=== PATIENT | female | born 1970 | race Caucasian/White ===

== ENCOUNTER → 2020-06-29 09:11 | Outpatient (CLI) | payer BC, SELFPAY ==
--- NOTE | ~2020-06-29 | MR_ITS ---
EXAMINATION: MR ankle LT wo con DATE: 06/29/2020 09:54 INDICATION: Peroneal tendinitis at the left ankle. Left ankle and lateral hindfoot pain. TECHNIQUE: Magnetic resonance imaging (MRI) of the affected ankle was performed without intravenous c ontrast. Sequences included sagittal, coronal, and axial proton-density weighted fast spin echo witho ut and with fat saturation. COMPARISON: None. FINDINGS: Medial ankle ligaments: Deep and superficial deltoid ligaments as well as the spring ligament are normal. Lateral ankle ligaments: The anterior and posterior inferior tibiofibular ligaments are normal. The calcaneofibular and poste rior talofibular ligaments are normal. There is attenuation and increased signal of the anterior talo fibular ligament without surrounding edema consistent with chronic partial tear. Tendons: Achilles tendon is normal. Small amount of fluid consistent with mild tenosynovitis along the peronea l tendon sheath and tibialis posterior tendon sheath. The peroneus longus tendon is normal. Mild phani neus brevis tendinopathy with longitudinal split tearing extending approximately 3 similar proximal a nd distal from the level of the tip of the lateral malleolus. The tibialis posterior, flexor digitoru m longus and flexor hallucis longus tendons are normal. The tibialis anterior and extensor hallucis l ongus and extensor digitorum longus tendons are normal. Plantar fascia: Plantar aponeurosis is normal. Bones/other: Bone alignment is normal. Mild osteoarthritis at the calcaneocuboid articulation with subarticular cy stic change along the medial side of the cuboid. Additional mild osteoarthritis without degenerative subarticular changes at the ankle and the second and third tarsal metatarsal joints. Marrow signal is otherwise normal throughout with no fracture or pathologic marrow replacing process. Small focus of susceptibility artifact centered along the skin surface plantar to the first tarsal metatarsal joint. Fluid: Physiologic amount fluid in the joint spaces. 11 x 3 x 3 mm multilobulated ganglion cyst along the do rsal margin of the talonavicular joint. No other abnormal fluid collections. IMPRESSION: 1. Mild peroneal tenosynovitis with mild tendinopathy and longitudinal split tearing of the peroneus brevis tendon. 2. Mild tenosynovitis along the tibialis posterior tendon. 3. 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 Reviewed, dictated and finalized at location B. IMPRESSION: 1. Mild peroneal tenosynovitis with mild tendinopathy and longitudinal split te aring of the peroneus brevis tendon. 2. Mild tenosynovitis along the tibialis posterior tendon. 3. Mild polyarticular osteoarthritis at the ankle, mid and hindfoot with mild r eticular cystic change at the calcaneal side of the calcaneocuboid articulation .
== END ==
PROVIDERS: Visit Provider Podiatrist Foot & Ankle Surgery
DX: M76.72 Peroneal tendinitis, left leg (principal); S96.812A Strain of other specified muscles and tendons at ankle and foot level, left foot, initial encounter; M65.872 Other synovitis and tenosynovitis, left ankle and foot; M19.072 Primary osteoarthritis, left ankle and foot
CPT/HCPCS: 73721

== ENCOUNTER 2020-08-11 00:10 | Outpatient (CLI) | payer BC, SELFPAY ==
[2020-08-11 18:38] LABS: SARS-CoV-2 RNA PCR Negative
== END 2020-08-11 00:11 | disposition home or self-care (01) ==
LOC: ANHCOVIDDT 00:11
PROVIDERS: PCP Family Medicine; Visit Provider Podiatrist Foot & Ankle Surgery
DX: Z01.812 Encounter for preprocedural laboratory examination (principal); Z20.828 Contact with and (suspected) exposure to other viral communicable diseases
CPT/HCPCS: 87635; C9803; U0003

== ENCOUNTER 2020-08-13 01:30 | Day surgery (SDC) | payer BC, SELFPAY ==
[2020-08-03 13:33] VITALS: BMI 38.7
[2020-08-13] VITALS (7 sets, daily range): BP systolic 120–142; BP diastolic 69–85; PULSE 65–92; RESP 14–18; TEMP 36.5; O2SAT 97–100
[2020-08-13] MEDS: LACTATED RINGERS 1,000 ML 30 ML IV CONT ×2 (06:45→09:21)
--- NOTE | 2020-08-13 07:02 | WPDHPUPDATE1 ---
History and Physical Update Update Date/Time: 08/13/20 07:02 History and Physical has been reviewed, including an updated exam of the patient. There are NO changes in the patient's condition. Risks, benefits, and alternatives have been discussed and questions answered. Patient agrees to proceed with procedure.
--- NOTE | 2020-08-13 07:08 | WPDANESEPPF ---
Anes - Initial Pre Proc Eval Procedure: Operation Date: 08/13/20 07:30 Proposed Procedures p Primary Repair Of Peroneal Tendons Left Ankle - Prince Ndiaye JR, MD Date/Time: 08/13/20 07:08 Surgeon: Prince Ndiaye JR, MD Pre Op Diagnosis: Peroneal Tendinopathy Left Ankle Patient Data Age: 49 Gender: F Height: 5 ft 6 in Weight: 108.5 kg Allergies Allergy/AdvReac Type Severity Reaction Status Date / Time clindamycin Allergy Intermediate hives Verified 08/13/20 06:59 hyaluronate sodium, Allergy Rash Verified 08/13/20 06:59 stabilized [From Monovisc] Home Medications Medication Instructions Recorded Confirmed Type acetaminophen [Tylenol] 325 mg PO DIRECTED PRN 08/03/20 08/03/20 History cholecalciferol (vitamin D3) 125 mcg PO DAILY 08/03/20 08/13/20 History [Vitamin D3] cyanocobalamin (vitamin B-12) 5,000 mcg SUBLINGUAL DAILY 08/03/20 08/13/20 History [Vitamin B-12] ibuprofen 400 mg PO Q6H PRN 08/03/20 08/13/20 History Patient hx anesthesia problems: none Family hx anesthesia problems: none PMFSH Past Medical History Medical History (Updated 08/13/20 @ 07:08 by Bart Lentz MD) Anxiety GERD (gastroesophageal reflux disease) Obesity BRIANDA on CPAP Surgical History Surgical History (Updated 08/13/20 @ 07:09 by Bart Lentz MD) H/O arthroscopic knee surgery Social History Social History Smoking status: Never smoker Spiritual care concerns: No Anes - Eval Final PreProcedure Day of Procedure 08/13/20 07:08 Patient weight: obese Heart: regular rate and rhythm Lungs: clear to auscultation Airway: Mallampati scale class II Neurological: alert and oriented Last oral intake: >/= 8 hours ASA classification: III Emergent: no Anesthetic plan: proceed Anesthesia type and monitoring: general LMA and standard monitoring Informed Consent: The patient's anesthetic plan and its attendant risks and benefits were discussed with the patient/family/POA. Questions were solicited and answers provided to the satisfaction of the patient/family/POA.
[2020-08-13] MEDS: ceFAZolin 2 GM/D5W 50 ML 2 GM/50 ML BAG IVPB (07:23)
--- NOTE | 2020-08-13 09:30 | PM.OP ---
Procedure Note - Brief Procedure Note - Brief Date of procedure: 08/13/20 Pre-op diagnosis: Peroneal Tendinopathy Left Ankle Post-op diagnosis: same Procedure performed: 1. Primary repair of peroneal tendons left foot and ankle 2. Peroneal tenosynovectomy left foot and ankle Anesthesia: GLMA Surgeon: Prince Ndiaye JR, DPM Estimated blood loss (mL): 10 Complications: No immediate complications Condition: stable Disposition: same day
[2020-08-13] MEDS: fentaNYL CITRATE INJ (*CRX) 100 MCG/2 ML VIAL 25 MCG IV PUSH ×8 (09:46→11:02)
[2020-08-13] MEDS: oxyCODONE HCL (*CRX) 5 MG TAB IR PO (10:42)
--- NOTE | 2020-08-13 11:33 | SUR.PHASEII ---
LEFT LEG ELEVATED WITH ICE BEHIND THE KNEE DURING STAY IN OP.
--- NOTE | 2020-08-13 17:26 | OP_ITS ---
DATE OF PROCEDURE: 08/13/2020 PREOPERATIVE DIAGNOSIS: Peroneal tendinopathy, left foot. POSTOPERATIVE DIAGNOSES: 1. Peroneal tendinopathy, left foot and ankle with longitudinal split tearing of the peroneus brevis and peroneus longus tendons. 2. Peroneal tenosynovitis, left foot and ankle. PROCEDURE: 1. Peroneal tenosynovectomy, left foot and ankle. 2. Primary repair of the peroneal tendons, left foot and ankle. PATHOLOGY: Tenosynovitis, sent for gross and histopathology. ANESTHESIA: General with local. HEMOSTASIS: Pneumatic thigh tourniquet at 300 mmHg. ESTIMATED BLOOD LOSS: Minimal. MATERIALS USED: 5-0 Prolene, 3-0 Vicryl, 4-0 Vicryl, and 4-0 Monocryl. INJECTABLES: 20 mL of Exparel injected preoperatively. COMPLICATIONS: None. PROCEDURE IN DETAIL: Under mild sedation, the patient was brought in the operating room, placed on the operating table in the lateral decubitus position. A pneumatic thigh tourniquet was placed about the patient's left thigh. Following general anesthesia, local anesthesia obtained about the left lower extremity just posterior and inferior to the neck of the fibula depositing 20 mL of Exparel. The foot was then scrubbed, prepped, and draped in the usual aseptic manner. An Esmarch bandage was then used to exsanguinate the patient's left foot and ankle and the pneumatic thigh tourniquet was then inflated. Surgery began in the following manner: Attention was directed to the lateral aspect of the left ankle where an incision was made just posterior to the lateral malleolus and extending 5 cm superiorly. The incision then was directed toward the base of the 5th metatarsal in a curvilinear fashion. The dissection was continued deep down through the subcutaneous tissues using sharp and blunt dissection. All bleeders were ligated and cauterized as necessary. At this point, blunt dissection was continued deep down to the level of the peroneal tendon sheath which was incised. The peroneus brevis tendon was visualized. There was a 2 cm longitudinal split tear along the proximal aspect of the peroneus brevis tendon. This was resected along with the bulbous thickening that was present just inferior to the longitudinal split tear. Next 5-0 Prolene was used to re-tubularize the peroneus brevis tendon. At this point, the dissection was continued deeper down to the level of the peroneus longus tendon. The peroneus longus tendon sheath was then incised and there was significant fraying of the entire peroneus longus tendon. There was approximately 6-7 cm of longitudinal split tearing. The amorphous longitudinal split tearing to the peroneus longus tendon was then debrided with a sharp 15 blade. Next 5-0 Prolene was used to re-tubularize the healthy portion of the peroneus longus tendon in simple interrupted suture technique. Once the peroneus longus and the peroneus brevis tendons were re-tubularized, there were still adequate healthy peroneal tendon tissues still remaining, so the decision was made to continue without a primary tenodesis. The peroneus longus and the peroneus brevis tendons were then appropriately positioned within the retromalleolar groove of the fibula. Next, there was significant tenosynovial tissue present, especially along the proximal aspect of the peroneal tendons. This was debrided and sent for gross and histopathology. All remaining deep bleeders were ligated and cauterized as necessary. The wound site was then flushed with copious amounts of sterile saline. Next, the periosteal and retinacular tissues were reapproximated and coapted with 3-0 PDS in simple interrupted suture technique. Next, the subcutaneous structures were reapproximated with 4-0 Vicryl in simple interrupted suture technique. Next, the skin was reapproximated and
== END 2020-08-13 11:34 | disposition home or self-care (01) ==
PROVIDERS: PCP Family Medicine; Visit Provider Podiatrist Foot & Ankle Surgery
PROC: (CPT 27650; principal; 2020-08-13 07:30)
DX: M76.72 Peroneal tendinitis, left leg (principal); M65.872 Other synovitis and tenosynovitis, left ankle and foot; L21.9 Seborrheic dermatitis, unspecified; G47.33 Obstructive sleep apnea (adult) (pediatric); F41.9 Anxiety disorder, unspecified; E66.9 Obesity, unspecified; Z68.38 Body mass index [BMI] 38.0-38.9, adult
CPT/HCPCS: 27658 ×2; 88304; A9270; C9290; J0690; J1100; J2250; J2405; J2704; J3010; J7120

== ENCOUNTER 2020-08-15 03:42 | Emergency (ER) | payer BC, SELFPAY ==
--- NOTE | ~2020-08-15 | XR_ITS ---
EXAMINATION: XR ankle LT min 3V DATE: 08/15/2020 05:00 INDICATION: Fever. Recently ankle surgery. TECHNIQUE: 4 views of left ankle were obtained. COMPARISON: Left ankle MRI 06/29/2020 FINDINGS: Bone alignment is normal. No fracture. There is mild ankle joint osteoarthritis. There are enthesophytes at the posterior and plantar aspects of calcaneal tuberosity. Ankle soft tissue swellin g is noted. IMPRESSION: 1. Mild ankle joint osteoarthritis. Reviewed, dictated and finalized at location A.
--- NOTE | 2020-08-15 03:44 | ED.FEVER ---
HPI - Fever General Chief Complaint: Fever Stated Complaint: fever, post op Time Seen by Provider: 08/15/20 03:44 Source: patient and family Mode of arrival: wheelchair Limitations: no limitations History of Present Illness HPI Narrative: Patient is a 49-year-old female who presented for evaluation of fever. Patient reports she had a fever of 102 Fahrenheit at home earlier this evening. Also with fever of 100.4 ?F yesterday. Patient with left ankle tendon repair surgery by podiatry at this facility on the . Patient denies any throbbing or pulsating ankle pain. She states she has had some dull, aching pain that she attributed to her normal postoperative state. She denies chest pain or cough. She reports mild sore throat. Patient states initially she thought she had had a bad reaction to the pain medication she was taking because she developed a rash on her face and some hives after taking the opioid medicine, but has since discontinued that and symptoms have resolved. No current shortness of breath. No urinary symptoms. Patient denies rhinorrhea, congestion, loss of sense of taste or smell. No ear pain. No myalgias or headache. No recent COVID exposures that the patient is aware of. No recent sick contacts. Related Data Home Medications Medication Instructions Recorded Confirmed acetaminophen [Tylenol] 325 mg PO DIRECTED PRN 08/03/20 08/03/20 cholecalciferol (vitamin D3) 125 mcg PO DAILY 08/03/20 08/13/20 [Vitamin D3] cyanocobalamin (vitamin B-12) 5,000 mcg SUBLINGUAL DAILY 08/03/20 08/13/20 [Vitamin B-12] Allergies Allergy/AdvReac Type Severity Reaction Status Date / Time clindamycin Allergy Intermediate hives Verified 08/13/20 06:59 hyaluronate sodium, Allergy Rash Verified 08/13/20 06:59 stabilized [From Monovisc] Review of Systems Review of Systems: Narrative: CONSTITUTIONAL: Reports fever EYES: Denies visual changes ENT: Denies rhinorrhea, congestion, sore throat, or otalgia. CARDIOVASCULAR: Denies chest pain, palpitations, or edema. RESPIRATORY: Denies cough or dyspnea. GASTROINTESTINAL: Denies abdominal pain, nausea, vomiting, or diarrhea. GENITOURINARY: Denies dysuria or hematuria. SKIN: Denies rash or itching. MUSCULOSKELETAL: Denies back pain, reports mild left ankle pain NEUROLOGIC: Denies headache PMFSH Past Medical History Medical History (Updated 08/15/20 @ 06:29 by July Delgado MD) Anxiety GERD (gastroesophageal reflux disease) Obesity BRIANDA on CPAP Surgical History Surgical History (Updated 08/15/20 @ 04:49 by July Delgado MD) H/O arthroscopic knee surgery History of ankle surgery Social History Social History Smoking status: Never smoker Spiritual care concerns: No Exam Narrative: Exam Narrative: GENERAL: Awake, alert, conversant HEAD: Normocephalic, atraumatic. EYES: PERRLA and EOMI. ENT: Nares clear, no rhinorrhea or epistaxis. Mucous membranes moist. Oropharynx clear without exudate or lesions. Uvula is midline. NECK: Supple. CHEST: No respiratory distress, breathing even and non labored HEART: Regular rate, sinus rhythm ABDOMEN:Non distended, non tender EXTREMITIES: Normal range of motion. Splint removed from left lower extremity. Incision site is clean, dry, intact. No active bleeding. No purulent discharge. No erythema or warmth. No wound dehiscence. DP pulse 2+. Mild forefoot edema extending into the ankle. No calf pain. SKIN: Warm, dry, no rash. NEURO:No focal deficits. Alert and oriented x3 Course Vital Signs Vital signs: Vital Signs Temperature 36.9 C 08/15/20 03:50 Pulse Rate 87 08/15/20 03:50 Respiratory Rate 16 08/15/20 03:50 Blood Pressure 153/100 H 08/15/20 03:50 Pulse Oximetry 100 08/15/20 03:50 Temperature 36.6 C 08/15/20 06:23 Pulse Rate 74 08/15/20 06:23 Respiratory Rate 14 08/15/20 06:23 Blood Pressure 149/81 H 08/15
[2020-08-15 03:50] VITALS: BP 153/100; PULSE 87; RESP 16; TEMP 36.9; O2SAT 100
[2020-08-15 05:23] VITALS: BP 144/70; PULSE 74; RESP 16; TEMP 36.7; O2SAT 97
[2020-08-15 05:29] LABS: Basophils Percent Auto 0.5 % (0.2-1.2); Eosinophils Absolute Auto 0.1 K/mm3 (0-0.3); Eosinophils Percent Auto 1.6 % (0-4.4); Hematocrit 43.5 % (37.0-47.0); Hemoglobin 14.3 g/dL (12.0-15.0); Immature Granulocyte Absolute 0.05 K/mm3 (0.00-0.031); Immature Granulocyte Percent A 0.6 % (0-0.5); Lymphocytes Absolute Auto 2.49 K/mm3 (0.9-3.2); Lymphocytes Percent Auto 30.7 % (18.3-44.2); Mean Corpuscular HGB Conc 32.9 g/dl (32-36); Mean Corpuscular Hemoglobin 28.8 pg (26-34); Mean Corpuscular Volume 87.7 fl (80-100); Mean Platelet Volume 10.7 fl (7.4-10.4); Monocytes Absolute Auto 0.7 K/mm3 (0.1-0.6); Monocytes Percent Auto 8.5 % (2.6-8.5); Neutrophils Absolute Auto 4.7 K/mm3 (1.3-6.7); Neutrophils Percent Auto 58.1 % (45.5-73.1); Platelet Count Result 244 k/mm3 (150-375); Red Blood Count 4.96 M/mm3 (4.2-5.4); Red Cell Distribution Width 12.8 % (11.5-14.5); White Blood Count 8.1 K/mm3 (4.5-10.0)
[2020-08-15] MEDS: ACETAMINOPHEN 500 MG TABLET 1000 MG PO (05:35)
[2020-08-15] MEDS: SODIUM CHLORIDE 0.9% IV 1,000 ML 999 ML IV CONT (05:35)
[2020-08-15 05:44] LABS: CRP 0.6 mg/dL (<1.0)
[2020-08-15 05:44] LABS: Add Urine Microscopic? YES; Appearance Urine Clear (Clear); Bilirubin Urine Negative (Negative); Blood Urine 1+ (Negative); Color Urine Colorless (Yellow); Glucose Urine UA Negative (Negative); Ketones Urine Negative (Negative); Leukocyte Esterase Ur Negative LEU/UL (Negative); Mucus Urine Rare /lpf; Nitrate Urine Negative (Negative); Protein Urine Negative (Negative); RBC Urine 0-2 /hpf (0-2); Specific Grav Ur 1.006 (1.001-1.035); Squamous Epithelial Cell Urine Moderate /hpf (Few); Urobilinogen Urine Negative mg/dL (<2.0); WBC Urine 0-3 /hpf
[2020-08-15 06:05] VITALS: TEMP 36.6
[2020-08-15 06:23] VITALS: BP 149/81; PULSE 74; RESP 14; TEMP 36.6; O2SAT 98
[2020-08-15 06:29] LABS: Erythrocyte Sedimentation Rate 15 mm/hr (0-20)
[2020-08-15 07:00] VITALS: BP 149/81; PULSE 75; RESP 18; TEMP 36.9; O2SAT 100
[2020-08-16 11:41] LABS: SARS-CoV-2 RNA PCR Negative
== END 2020-08-15 07:02 | disposition home or self-care (01) ==
PROVIDERS: Emergency Provider Emergency Medicine; PCP Family Medicine
DX: R50.9 Fever, unspecified (principal); Z20.828 Contact with and (suspected) exposure to other viral communicable diseases; Z98.890 Other specified postprocedural states; K21.9 Gastro-esophageal reflux disease without esophagitis; G47.33 Obstructive sleep apnea (adult) (pediatric); E66.9 Obesity, unspecified; Z68.38 Body mass index [BMI] 38.0-38.9, adult; M19.072 Primary osteoarthritis, left ankle and foot
CPT/HCPCS: 29515; 36415; 73610; 81001; 85025; 85652; 86140; 87635; 87880; 96360; 99283; A9270; C9803; J7030; U0003

== ENCOUNTER → 2021-01-22 08:41 | Outpatient (CLI) | payer BC, SELFPAY ==
--- NOTE | ~2021-01-22 | MR_ITS ---
EXAMINATION: MR ankle LT wo con DATE: 01/22/2021 09:52 INDICATION: Achilles noninsertional tendinitis presenting with left ankle pain and swelling TECHNIQUE: Magnetic resonance imaging (MRI) of the left ankle was performed without intravenous contr ast. Sequences included sagittal, coronal, and axial proton-density weighted fast spin echo without a nd with fat saturation. COMPARISON: None. FINDINGS: Medial ankle ligaments: Deep and superficial deltoid ligaments as well as the spring ligament are normal. Lateral ankle ligaments: The anterior and posterior inferior tibiofibular ligaments are normal. The calcaneofibular and labor and employment paral[employer] ior talofibular ligaments are normal. The anterior talofibular ligament appears attenuated without wheeler rrounding edema consistent with sequela of chronic partial tear. Tendons: Minimal increased signal in the distal Achilles tendon consistent with very mild tendinosis without p eritendinitis or discrete tendon tear. Mild peroneal tenosynovitis. Interval progression of now moder ate severity peroneus brevis tendinopathy with longitudinal split tearing and mild peroneus longus te ndinopathy without discrete tendon tear. The tibialis anterior and extensor hallucis longus and exten sor digitorum longus tendons are normal. The tibialis posterior, flexor digitorum longus and flexor h allucis longus tendons are normal. Plantar fascia: The plantar aponeurosis is normal. Bones/other: Bone alignment is normal. Normal bone marrow signal throughout with no fracture, reactive edema or pa thologic marrow replacing process. Mild osteoarthritis at the tibiotalar and calcaneocuboid joints wi th mild subarticular edema along the lateral margin of the talar dome and along the dorsal and medial margin of the proximal cuboid. Fluid: Physiologic amount of fluid in the joint spaces. No bursitis or other abnormal fluid collections. IMPRESSION: 1. Mild peroneal tenosynovitis with progression of now moderate tendinopathy and longitudinal split t earing of the peroneus brevis tendon. 2. Mild osteoarthritis at the tibiotalar and calcaneocuboid joints. 3. Minimal distal Achilles tendinosis without discrete tear. Reviewed, dictated and finalized at location A. IMPRESSION: 1. Mild peroneal tenosynovitis with progression of now moderate tendinopathy an d longitudinal split tearing of the peroneus brevis tendon. 2. Mild osteoarthritis at the tibiotalar and calcaneocuboid joints. 3. Minimal distal Achilles tendinosis without discrete tear.
== END ==
PROVIDERS: Visit Provider Podiatrist Foot & Ankle Surgery
DX: M76.62 Achilles tendinitis, left leg (principal); M19.072 Primary osteoarthritis, left ankle and foot
CPT/HCPCS: 73721

== ENCOUNTER 2022-04-08 12:17 | Emergency (ER) | payer BC, SELFPAY ==
--- NOTE | 2022-04-08 12:21 | ED.URI ---
HPI - URI/Sore Throat General Chief Complaint: Upper Respiratory Infection Stated Complaint: pos strep Time Seen by Provider: 04/08/22 12:21 Source: patient and RN notes reviewed History of Present Illness HPI Narrative: Patient is a 51-year-old female who presents the urgent care with complaints of a sore throat that started last night. Patient denies of any other upper respiratory complaints, nausea, vomiting, fever. Denies any ill exposures. Patient states that she did salt water gargles this morning. No other acute complaints. No acute distress noted. Patient aware of the plan of care. Some parts of this dictation were generated by voice recognition software and may contain typographical and/or grammatical inaccuracies. Related Data Home Medications Medication Instructions Recorded Confirmed famotidine 20 mg tablet (Pepcid) 20 mg PO DAILY 04/08/22 04/08/22 omeprazole 20 mg capsule,delayed 1 cap DAILY 04/08/22 04/08/22 release Allergies Allergy/AdvReac Type Severity Reaction Status Date / Time clindamycin Allergy Intermediate hives Verified 04/08/22 12:30 acetaminophen Allergy Hives Verified 04/08/22 12:30 [From Tylenol-Codeine #3] codeine Allergy Hives Verified 04/08/22 12:30 [From Tylenol-Codeine #3] hyaluronate sodium, Allergy Rash Verified 04/08/22 12:30 stabilized [From Monovisc] metoprolol Allergy Hives Verified 04/08/22 12:30 oxycodone [From Percocet] Allergy Hives Verified 04/08/22 12:30 Review of Systems Review of Systems: CONSTITUTIONAL: Denies fever, chills, or sweats. EYES: Denies visual changes, redness, or discharge. ENT: Denies rhinorrhea, congestion, or otalgia. Reports of sore throat CARDIOVASCULAR: Denies chest pain, palpitations, or edema. RESPIRATORY: Denies cough or dyspnea. GASTROINTESTINAL: Denies abdominal pain, nausea, vomiting, or diarrhea. GENITOURINARY: Denies dysuria or hematuria. SKIN: Denies rash or itching. MUSCULOSKELETAL: Denies back pain, joint pain, or myalgia. NEUROLOGIC: Denies headache, numbness, or weakness. All other systems reviewed are negative, except as documented in HPI. [facility] Past Medical History Medical History (Updated 04/08/22 @ 12:56 by MARZENA Queen) Anxiety GERD (gastroesophageal reflux disease) Obesity BRIANDA on CPAP Surgical History Surgical History (System 03/15/21 @ 10:56 by Dustin Tubbs) H/O arthroscopic knee surgery History of ankle surgery Social History Social History (System 03/15/21 @ 10:56 by Dustin Tubbs) Smoking status: Never smoker Spiritual care concerns: No Comments At the time of my signature, I reviewed and agree with the nursing past medical, surgical, social, and family history. There is no relevant family history pertinent to the patient complaint. Exam Narrative: GENERAL: This is a well-nourished, well-developed patient, in no apparent distress. HEAD: normocephalic, atraumatic. EYES: PERRL. Sclera clear/white. Vision is grossly intact. EARS: External ears normal, auditory canals clear and without drainage, TMs normal without perforation. Hearing grossly intact. NOSE: External nose normal with no obvious nasal discharge, nares without redness, no rhinorrhea. THROAT: Mucous membranes moist, mild erythema noted posterior oropharynx with moderate postnasal drainage without exudate or ulceration NECK: Neck supple, non-tender without lymphadenopathy CARDIOVASCULAR: Regular rate and rhythm without murmurs, gallops, or rubs. RESPIRATORY: Clear to auscultation. Breath sounds equal bilaterally. No wheezes, rales, or rhonchi. SKIN: warm, intact with no suspicious lesions or rash, good texture and turgor. NEURO: awake, alert, and oriented to person, place and time. There were no obvious focal neurologic abnormalities. EXTREMITIES: No clubbing, cyanosis, or edema. Course Course Level of Care: Express Care Visit Vital Signs Vital signs: Vital Signs Temperature 98.5 F
[2022-04-08 12:24] VITALS: BP 157/69; PULSE 68; RESP 18; TEMP 36.9; O2SAT 100
== END 2022-04-08 13:05 | disposition home or self-care (01) ==
PROVIDERS: Emergency Provider Nurse Practitioner Family; PCP Family Medicine
DX: J02.9 Acute pharyngitis, unspecified (principal); K21.9 Gastro-esophageal reflux disease without esophagitis; G47.33 Obstructive sleep apnea (adult) (pediatric); E66.9 Obesity, unspecified; Z68.29 Body mass index [BMI] 29.0-29.9, adult
CPT/HCPCS: 87081; 87880; 99213; G0463